=== PATIENT | female | born 1980 | race Caucasian/White ===

== ENCOUNTER → 2020-08-25 16:31 | Outpatient (BNVA) | payer OTHER, SELFPAY | PROVIDERS: PCP Nurse Practitioner Family; Visit Provider Family Medicine | DX: Z20.828 Contact with and (suspected) exposure to other viral communicable diseases (principal) | CPT/HCPCS: 87635 ==

== ENCOUNTER 2020-10-11 09:52 | Outpatient (CLI) | payer OTHER, SELFPAY ==
--- NOTE | 2020-10-11 10:13 | CT_ITS ---
WS: [id number] CT LUMBAR SPINE, noncontrast. HISTORY: COCCYX PAIN TECHNIQUE: Contiguous 2.5 mm axial imaging are performed. Sagittal and coronal reformats are submitte d and reviewed. All CT scans at [facility] use at least one of these dose optimization te chniques: automated exposure control; mA and/or kV adjustment per patient size (includes targeted exa ms where dose is matched to clinical indication); or iterative reconstruction. IV contrast: None DLP: 2725.74 mGycm COMPARISON: Radiograph 08/14/2020 Very mild straightening of the normal lumbar lordosis. Vertebral body heights and disc space heights are normally maintained. No fractures. Very minimal degenerative air in the SI joints. No sacral abno rmality. Only 3 segments of the sacrum are included. The coccyx was not included on this lumbar spine CT. L1-2: Normal. L2-3: Normal. L3-4: Normal. L4-5: Mild annular disc bulging. No significant stenosis. There is very slight widening of the facet joints. L5-S1: Mild facet joint arthritis. Very mild narrowing of the foramen due to osteophytes and facet ar thritis. IUD is noted within the endometrial canal. CT/CT lumbar spine wo con* [id number] IMPRESSION: 1. No lumbar spine or sacral fracture identified. Please note this lumbar spin e CT only included portion of the sacrum. The coccyx is not included. 2. Mild facet joint arthritis at L4-5 and L5-S1. No high-grade stenosis.
== END 2020-10-11 09:53 | disposition home or self-care (01) ==
LOC: RADWPI 09:55
PROVIDERS: PCP Nurse Practitioner Family; Visit Provider Nurse Practitioner Family
DX: M53.3 Sacrococcygeal disorders, not elsewhere classified (principal); M47.816 Spondylosis without myelopathy or radiculopathy, lumbar region; M47.817 Spondylosis without myelopathy or radiculopathy, lumbosacral region
CPT/HCPCS: 72131

== ENCOUNTER 2020-11-26 06:00 | Outpatient (RCR) | payer OTHER, SELFPAY | END 2020-12-06 23:00 | disposition home or self-care (01) | LOC: SPT 06:00 | PROVIDERS: PCP Nurse Practitioner Family; Referring Provider Nurse Practitioner Family; Visit Provider Nurse Practitioner Family | DX: M53.3 Sacrococcygeal disorders, not elsewhere classified (principal) | CPT/HCPCS: 97110; 97161 ==

== ENCOUNTER 2020-12-13 06:00 | Outpatient (RCR) | payer OTHER, SELFPAY | END 2020-12-14 23:59 | disposition home or self-care (01) | LOC: SPT 06:00 | PROVIDERS: PCP Nurse Practitioner Family; Referring Provider Nurse Practitioner Family; Visit Provider Nurse Practitioner Family | DX: N39.41 Urge incontinence (principal); M53.3 Sacrococcygeal disorders, not elsewhere classified | CPT/HCPCS: 97140; 97161; 97530 ==

== ENCOUNTER 2020-12-15 06:00 | Outpatient (RCR) | payer OTHER, SELFPAY | END 2021-01-14 23:59 | disposition home or self-care (01) | LOC: SPT 06:00 | PROVIDERS: PCP Nurse Practitioner Family; Referring Provider Nurse Practitioner Family; Visit Provider Nurse Practitioner Family | DX: N39.41 Urge incontinence (principal) | CPT/HCPCS: 97140 ==

== ENCOUNTER 2021-08-16 20:31 | Emergency (ER) | payer OTHER, SELFPAY ==
[2021-08-16 20:48] VITALS: BP 154/106; PULSE 91; RESP 18; TEMP 36.8; O2SAT 98; BMI 46.2
--- NOTE | 2021-08-16 21:19 | CTR_ITS ---
PROCEDURE INFORMATION: Exam: CT Abdomen And Pelvis Without Contrast Exam date and time: 08/16/2021 9:19 PM Age: 40 years old Clinical indication: Abdominal pain; Localized; Prior surgery; Surgery type: Iud; Patient HX: Having left flank/llq pain for one week. Has been on abx for UTI for several days. ; Additional info: Eval for kidney stone vs pyelo TECHNIQUE: Imaging protocol: Computed tomography of the abdomen and pelvis without contrast. Radiation optimization: All CT scans at this facility use at least one of these dose optimization techniques: automated exposure control; mA and/or kV adjustment per patient size (includes targeted exams where dose is matched to clinical indication); or iterative reconstruction. COMPARISON: CR XR sacrum coccyx min 2V [id number] 08/14/2020 10:11 AM RADIATION DOSE METRICS: Total DLP (mGy-cm): 1898.61 FINDINGS: Liver: Normal. No mass. Gallbladder and bile ducts: Normal. No calcified stones. No ductal dilation. Pancreas: Normal. No ductal dilation. Spleen: Normal. No splenomegaly. Adrenal glands: Normal. No mass. Kidneys and ureters: Normal. No hydronephrosis. Stomach and bowel: Unremarkable. No obstruction. No mucosal thickening. Appendix: No evidence of appendicitis. Intraperitoneal space: Unremarkable. No free air. No significant fluid collection. Vasculature: One or more calcified pelvic phleboliths. Lymph nodes: Unremarkable. No enlarged lymph nodes. Urinary bladder: Unremarkable as visualized. Reproductive: IUD within the uterus. Bones/joints: Unremarkable. No acute fracture. Soft tissues: Unremarkable. CT/CT kidney stone [id number] IMPRESSION: IUD within the uterus.
--- NOTE | 2021-08-16 21:23 | ED_ITS ---
HPI - General Adult General: Chief complaint: Abdominal Pain Stated complaint: Lower ABD Pain Lower Back Pain Time Seen by Provider: 08/16/21 21:10 History of Present Illness: HPI narrative: Patient is a 40-year-old female with history of recurrent UTI, renal colic who presents the emergency room with complaints of left lower quadrant pain and left flank pain x8 days. Patient initially has symptoms of pain and believed she torn a muscle after work-up. However last Thursday, patient noticed hematuria went to an urgent care clinic was diagnosed with UTI. Patient was started on Bactrim and has current is currently on day 4. Since starting Bactrim, patient continues to complaints of left-sided flank pain and now has had nausea and decreased p.o. intake. Denies any melena/hematochezia, ongoing hematuria, new vaginal discharge. Patient reports that this does not feel like kidney stone. Onset: 8 days ago Duration:8 days Location:home Severity:moderate Review of Systems Narrative: Constitutional: No fever, no chills. HEENT: No vision changes CV: No chest pain, no palpitations PULM: no cough, no dyspnea. GI: +L flank/LLQ abdominal pain, no N/V/D. : No dysuria MSKEL: No muscle pain SKIN: No new rashes, no lesions. NEURO: No headache, no focal weakness. HEME: No visible bruises PSYCH: Normal mood PFSH ED PFSH: Medical History (Updated 08/16/21 @ 21:23 by Raul Miranda MD) Anemia, unspecified Depression Genital herpes in women History of cervical dysplasia Menorrhagia with regular cycle No pertinent past medical history neghx: htn,dm,thyroid,dvt/pe PCP: Ashley Rodriguez Suicide attempt Surgical History H/O LEEP x2 Family History Grandfather Heart disease Maternal Hypertension Maternal Diabetes Maternal Mother Ovarian cancer dx age 22 Grandmother Diabetes Maternal Denies family history of Colon cancer Breast cancer Uterine cancer Thyroid disease Stroke Female Reproductive History: Date of last menstrual period: 05/31/21 Physical Exam Narrative: EXAM NARRATIVE: Head: Atraumatic Eyes: PERRL, conjunctiva without injection ENT: Mucous membrane moist NECK: Supple, ROM intact LUNGS: LCTAB, no crackles/rhonchi CV: RRR ABDOMEN: Soft, nontender in all quadrants EXTREMITY: Normal ROM SKIN: No rash or erythema NEURO: Awake and alert, no focal motor deficits PSYCH: Normal mood and affect Course Vital Signs: Vital signs: Vital Signs Temperature 98.3 F 08/16/21 20:48 Pulse Rate 91 08/16/21 20:48 Respiratory Rate 18 08/16/21 23:17 Blood Pressure 154/106 08/16/21 20:48 Pulse Oximetry 98 08/16/21 23:17 MDM - General Adult MDM Narrative: Medical decision making narrative: 40-year-old female presents emergency room with complaints of left-sided flank pain. On exam patient has mild tenderness palpation. CT negative for any findings of stones. No leukocytosis. No pelvic complaints this time and patient declined PAINTER SPRAY exam today. Do not suspect PAINTER SPRAY pathology. Received pain meds with improvement in symptoms. No suspicion for other acute intra-abdominal pathology including SBO, biliary pathology, appendicitis, diverticulitis, or other emergent condition requiring surgery. Disposition: Discharge. Patient counseled regarding diagnostic impression, treatment plan. Patient given ED strict return precautions to return for continuation, worsening, or development of new symptoms. Instructed to f/u w/ PCP regarding symptoms today. Patient verbalized understanding. Lab Data: Labs: Lab Results 08/16/21 08/16/21 08/16/21 21:42 21:42 21:42 WBC 10.2 10^3/uL H 10 ^3/uL (4.0-10.0) RBC 5.40 10^6/uL H 10 ^6/uL (4.1-5.3) Hgb 13.4 g/dL g/dL (11.5-15.3) Hct 44.5 % % (37.0-47.0) MCV 82.4 fl fl (81-99) MCH 24.8 pg L pg (28.0-34.0) MCHC 30.1 g/dL g/dL (30.0-36.0) RDW 14.3 % % (12.1-15.1) Plt Count 392 10^3/cmm 10^3 /cmm (130-400) MPV 9.8 fL fL (7.4-10.4) Neut % (Auto) 60.1 % % Lymph % (Auto) 27.5 % % [place] % (Auto) 8.0 % % Eos % (Auto) 3.7 % % Baso % (Auto) 0.5 % % Neut # (Auto) 6.12 10^3/uL 10^3 /uL (1.8-7.7) Lymph # (Auto) 2.8 10^3/uL 10^3/ uL (0.8-4.8) [place] # (Auto) 0.8 10^3/uL 10^3/ uL (0.2-0.9) Eos # (Auto) 0.4 10^3/uL 10^3/ uL (0.0-0.8) Baso # (Auto) 0.1 10^3/uL 10^3/ uL (0.0-0.1) Nucleated RBC % (a uto) 0 % % Nucleated RBCs # 0.0 /100WBC /100W BC Sodium 136 mmol/L mmol/L (136-145) Potassium 4.2 mmol/L mmol/L (3.5-5.1) Chloride 100 mmol/L mmol/L (98-107) Carbon Dioxide 24 mmol/L mmol/L (22-29) Anion Gap 16.2 (5-19) BUN 12 mg/dL mg/dL (6-20) Creatinine 0.8 mg/dL mg/dL (0.5-0.9) GFR Calculation 80.3 mL/min L mL/ min (90-130) Glucose 80 mg/dL mg/dL (65-115) Calculated Osmolal ity 281 mOsm/kg L mOs m/kg (285-295) Calcium 8.8 mg/dL mg/dL (8.5-10.5) Total Bilirubin 0.2 mg/dL mg/dL (0.15-1.2) AST 14 U/L U/L (0-32) ALT 16 U/L U/L (0-33) Alkaline Phosphata se 65 IU/L IU/L (35-105) Total Protein 7.2 g/dL g/dL (6.6-8.7) Albumin 4.3 g/dL g/dL (3.5-5.2) Globulin 2.9 g/dL g/dL (1.3-4.6) Lipase 22 U/L U/L (13-60) HCG, Qual Negative (Negative) Urine Color Urine Appearance Urine pH Ur Specific Gravit y Urine Protein Urine Glucose (UA) Urine Ketones Urine Blood Urine Nitrate Urine Bilirubin Urine Urobilinogen Ur Leukocyte Mariela ase Urine RBC Urine WBC Ur Squamous Epith Cells Amorphous Sediment Urine Bacteria 08/16/21 21:42 WBC RBC Hgb Hct MCV MCH MCHC RDW Plt Count MPV Neut % (Auto) Lymph % (Auto) [place] % (Auto) Eos % (Auto) Baso % (Auto) Neut # (Auto) Lymph # (Auto) [place] # (Auto) Eos # (Auto) Baso # (Auto) Nucleated RBC % (a uto) Nucleated RBCs # Sodium Potassium Chloride Carbon Dioxide Anion Gap BUN Creatinine GFR Calculation Glucose Calculated Osmolal ity Calcium Total Bilirubin AST ALT Alkaline Phosphata se Total Protein Albumin Globulin Lipase HCG, Qual Urine Color [place] (Yellow) Urine Appearance Clear (CLEAR) Urine pH 5 (5-7) Ur Specific Gravit y 1.015 (1.005-1.030) Urine Protein 1+ H (Negative) Urine Glucose (UA) Norm (Normal) Urine Ketones Negative (Negative) Urine Blood Neg (Negative) Urine Nitrate Positive H (Negative) Urine Bilirubin 1+ H (Negative) Urine Urobilinogen 4 mg/dL H mg/dL (Negative) Ur Leukocyte Mariela ase Negative (Negative) Urine RBC 0-4 /hpf H /hpf (0-2) Urine WBC 0-4 /hpf H /hpf (0-5) Ur Squamous Epith Cells 0-4 /hpf H /hpf (0-5) Amorphous Sediment Not Reportable Urine Bacteria 1+ /hpf H /hpf (NONE) Imaging Data^: Other Imaging: Radiologist's impression: [address] [id number] Scan ReportSigned Patient: Suzy Navarro #: [id number]: 1980Acct#:[id number]/Sex: 40 / FADM Date: 08/16/21Loc: ERRoom/Bed:Attending Dr: Ordering Provider/Ordering MD: Raul Miranda MD Date of Service: 08/16/21 Procedure(s): CT kidney stone [id number] Accession Number(s): [id number] Report Number: [id number] PROCEDURE INFORMATION: Exam: CT Abdomen And Pelvis Without Contrast Exam date and time: 08/16/2021 9:19 PM Age: 40 years old Clinical indication: Abdominal pain; Localized; Prior surgery; Surgery type: Iud; Patient HX: Having left flank/llq pain for one week. Has been on abx for UTI for several days. ; Additional info: Eval for kidney stone vs pyelo TECHNIQUE: Imaging protocol: Computed tomography of the abdomen and pelvis without contrast. Radiation optimization: All CT scans at this facility use at least one of these dose optimization techniques: automated exposure control; mA and/or kV adjustment per patient size (includes targeted exams where dose is matched to clinical indication); or iterative reconstruction. COMPARISON: CR XR sacrum coccyx min 2V [id number] 08/14/2020 10:11 AM RADIATION DOSE METRICS: Total DLP (mGy-cm): 1898.61 FINDINGS: Liver: Normal. No mass. Gallbladder and bile ducts: Normal. No calcified stones. No ductal dilation. Pancreas: Normal. No ductal dilation. Spleen: Normal. No splenomegaly. Adrenal glands: Normal. No mass. Kidneys and ureters: Normal. No hydronephrosis. Stomach and bowel: Unremarkable. No obstruction. No mucosal thickening. Appendix: No evidence of appendicitis. Intraperitoneal space: Unremarkable. No free air. No significant fluid collection. Vasculature: One or more calcified pelvic phleboliths. Lymph nodes: Unremarkable. No enlarged lymph nodes. Urinary bladder: Unremarkable as visualized. Reproductive: IUD within the uterus. Bones/joints: Unremarkable. No acute fracture. Soft tissues: Unremarkable. CT/CT kidney stone [id number] IMPRESSION: IUD within the uterus. Dictated By:Bennie Recinos MDSigned By:Bennie Recinos MDSigned Date/T ana:08/16/211DD/ 18 Discharge Plan Discharge Patient Disposition: Home Clinical Impression: Acute flank pain, Left lower quadrant abdominal pain Condition: Stable Prescriptions: New fosfomycin tromethamine 3 gram packet 1 packet PO ONCE Qty: 1 RF: 0 Celebrex 100 mg capsule 100 mg PO BID Qty: 20 RF: 0 No Action acyclovir 200 mg capsule 200 mg PO TID Qty: 60 RF: 6 naproxen 500 mg tablet 500 mg PO BID 15 Days Qty: 30 RF: 0 Discharge Orders: Discharge ED (Routine); Ordered 08/16/21 Ordered By: Wing Serrano Referrals: Rose Rodriguez FNP [Primary Care Provider] - Discharge Diet: Advance as tolerated Discharge Activity: Resume usual activity Patient Instructions: Urinary Tract Infection in Women (ED), Abdominal Pain (ED) Activity Restrictions/Additional Instructions: Come back to the emergency room or follow-up with your primary care provider if your pain worsens, if any fever chills, nausea/vomiting, decreased p.o. intake, or any new or concerning complaints. Coding Level of Care Code ED Dairy Nutritionist for [facility]
[2021-08-16] MEDS: sodium chloride 0.9% 1,000 ML 999 ML IV (22:02)
[2021-08-16 22:06] LABS: Basophils # 0.1 10^3/uL (0.0-0.1); Basophils % 0.5 %; Eosinophils # 0.4 10^3/uL (0.0-0.8); Eosinophils % 3.7 %; Hematocrit 44.5 % (37.0-47.0); Hemoglobin 13.4 g/dL (11.5-15.3); Lymphocytes # 2.8 10^3/uL (0.8-4.8); Lymphocytes % 27.5 %; Mean Corpuscular HGB Conc 30.1 g/dL (30.0-36.0); Mean Corpuscular Hemoglobin 24.8 pg (28.0-34.0); Mean Corpuscular Volume 82.4 fl (81-99); Mean Platelet Volume 9.8 fL (7.4-10.4); Monocytes # 0.8 10^3/uL (0.2-0.9); Neutrophils # 6.12 10^3/uL (1.8-7.7); Neutrophils % 60.1 %; Nucleated Red Blood Cells % 0 %; Platelet Count 392 10^3/cmm (130-400); Red Cell Distribution Width 14.3 % (12.1-15.1); White Blood Count 10.2 10^3/uL (4.0-10.0)
[2021-08-16] MEDS: acetaminophen 500 mg Tablet 1000 MG PO (22:11)
[2021-08-16] MEDS: ketorolac 30 mg/mL INJ IVP (22:11)
[2021-08-16 22:17] LABS: HCG, Serum Qual Negative (Negative)
[2021-08-16 22:19] LABS: Add Urine Culture? No; Add Urine Microscopic? YES; Bacteria Urine 1+ /hpf; Bilirubin Urine 1+ (Negative); Blood Urine Neg (Negative); Glucose Urine UA Norm (Normal); Ketones Urine Negative (Negative); Leukocyte Esterase Urine Negative (Negative); Nitrate Urine Positive (Negative); Protein Urine 1+ (Negative); RBC Urine 0-4 /hpf (0-2); Specific Gravity, Urine 1.015 (1.005-1.030); Squamous Epithelial Cell Urine 0-4 /hpf (0-5); Urine Appearance Clear (CLEAR); Urine Color Orange (Yellow); Urobilinogen Urine 4 mg/dL (Negative); WBC Urine 0-4 /hpf (0-5); pH Urine 5 (5-7)
[2021-08-16 22:31] LABS: Alanine Aminotransferase 16 U/L (0-33); Albumin Level 4.3 g/dL (3.5-5.2); Alkaline Phosphatase 65 IU/L (35-105); Anion Gap 16.2 (5-19); Aspartate Amino Transferase 14 U/L (0-32); Blood Urea Nitrogen 12 mg/dL (6-20); Calcium 8.8 mg/dL (8.5-10.5); Carbon Dioxide 24 mmol/L (22-29); Chloride 100 mmol/L (98-107); Globulin 2.9 g/dL (1.3-4.6); Glomerular Filtration Rate 80.3 mL/min (90-130); Glucose 80 mg/dL (65-115); Lipase 22 U/L (13-60); Osmolality Calculated 281 mOsm/kg (285-295); Potassium 4.2 mmol/L (3.5-5.1); Sodium 136 mmol/L (136-145); Total Bilirubin 0.2 mg/dL (0.15-1.2); Total Protein 7.2 g/dL (6.6-8.7)
[2021-08-16 23:17] VITALS: RESP 18; O2SAT 98
[2021-08-16] MEDS: morphine 4 mg/mL SDV 1 mL 2 MG IVP (23:17)
[2021-08-16] MEDS: cephALEXin 500 mg Capsule PO (23:51)
== END 2021-08-17 00:40 | disposition home or self-care (01) ==
PROVIDERS: Emergency Medicine; Emergency Provider Nurse Practitioner Family; PCP Nurse Practitioner Family
DX: R10.32 Left lower quadrant pain (principal)
CPT/HCPCS: 74176; 80053; 81001; 83690; 84703; 85025; 96361; 96374; 96375; 99284; J1885; J2270; J7030

== ENCOUNTER → 2021-12-12 12:07 | Outpatient (BNVA) | payer OTHER, SELFPAY | PROVIDERS: PCP Nurse Practitioner Family; Visit Provider Registered Nurse Neonatal Intensive Care | DX: N39.0 Urinary tract infection, site not specified (principal); R39.9 Unspecified symptoms and signs involving the genitourinary system | CPT/HCPCS: 81000; 87086 ==

== ENCOUNTER 2022-03-27 07:54 | Outpatient (CLI) | payer OTHER, SELFPAY ==
--- NOTE | 2022-03-27 08:00 | MM_ITS ---
WS: [id number] DIAGNOSTIC BILATERAL DIGITAL BREAST TOMOSYNTHESIS MAMMOGRAPHY WITH CAD LEFT breast ultrasound, limited. HISTORY: Left-sided breast pain. COMPARISON: None available. TECHNIQUE: Bilateral craniocaudad, mediolateral oblique, and mediolateral views are submitted with to mosynthesis and SM. Spot compression LEFT CC. Computer aided detection utilized. Breast composition: There are scattered areas of fibroglandular density. Marker is placed along the a nterior LEFT breast near 12:00. No underlying abnormality is identified on mammography. LEFT breast ultrasound, limited. Ultrasound is performed in the area of pain which includes from 3-6 o'clock and also near the nipple. There is no mass identified. No soft tissue thickening or distortion. No increased vascularity. MM/[place] [id number] IMPRESSION: BI-RADS: 2-Benign FOLLOW UP: 1 Year Follow-up
--- NOTE | 2022-03-27 08:08 | US_ITS ---
WS: [id number] DIAGNOSTIC BILATERAL DIGITAL BREAST TOMOSYNTHESIS MAMMOGRAPHY WITH CAD LEFT breast ultrasound, limited. HISTORY: Left-sided breast pain. COMPARISON: None available. TECHNIQUE: Bilateral craniocaudad, mediolateral oblique, and mediolateral views are submitted with to mosynthesis and SM. Spot compression LEFT CC. Computer aided detection utilized. Breast composition: There are scattered areas of fibroglandular density. Marker is placed along the a nterior LEFT breast near 12:00. No underlying abnormality is identified on mammography. LEFT breast ultrasound, limited. Ultrasound is performed in the area of pain which includes from 3-6 o'clock and also near the nipple. There is no mass identified. No soft tissue thickening or distortion. No increased vascularity. US/US breast LT limited* [id number] IMPRESSION: BI-RADS: 2-Benign FOLLOW UP: 1 Year Follow-up
== END 2022-03-27 07:55 | disposition home or self-care (01) ==
PROVIDERS: PCP Nurse Practitioner Family; Visit Provider Nurse Practitioner Family
DX: N64.4 Mastodynia (principal)
CPT/HCPCS: 76642; 77062

== ENCOUNTER 2023-04-14 08:51 | Outpatient (CLI) | payer OTHER, SELFPAY ==
--- NOTE | 2023-04-14 08:57 | MM_ITS ---
WS: [id number] VIEWS: MLO and CC views both breasts. 3D digital tomosynthesis is also included in this exam. Comparison made with prior exam of 03/27/2022. Findings: Questionable new 1 cm ovoid nodule noted in the anterior lateral RIGHT breast at about nipple level. This is best seen on the MLO view and the MLO tomograms. Difficult to identify on the cc views. No ar chitectural distortion or suspicious calcification. No new finding in the LEFT breast. There are area s of scattered fibroglandular density. Regional ultrasound as well as compression spot imaging of the RIGHT breast would be indicated for further work-up. Impression: MM/[place] [id number] BI-RADS: 0-Incomplete: Need additional imaging evaluation FOLLOW-UP: See Report This mammogram was also analyzed by the Computer Aided Detection System R2 Imag e Correctional Therapy Director.
== END 2023-04-14 08:52 | disposition home or self-care (01) ==
LOC: RAD 08:53 → MOBLMAM 08:56
PROVIDERS: PCP Nurse Practitioner Family; Visit Provider Nurse Practitioner Women's Health
DX: Z12.39 Encounter for other screening for malignant neoplasm of breast (principal)
CPT/HCPCS: 77063; 77067

== ENCOUNTER 2023-05-01 08:42 | Outpatient (CLI) | payer OTHER, SELFPAY ==
--- NOTE | 2023-05-01 09:00 | MM_ITS ---
WS: [id number] VIEWS: Compression spot images of the RIGHT breast in the craniocaudal, mediolateral and MLO projecti ons were obtained with tomography.. Comparison made with prior exam of screening exam of 04/14/2023 Findings: The previously suspicioned nodule in the anterior lateral RIGHT breast is not identified on the compr ession spot images or the tomograms. No suspicious finding. Areas of scattered fibroglandular density in the RIGHT breast. Impression: MM/[place] [id number] BI-RADS: 2-Benign FOLLOW-UP: 1 Year Follow-up This mammogram was also analyzed by the Computer Aided Detection System R2 Imag e Investigator Operator.
== END 2023-05-01 08:43 | disposition home or self-care (01) ==
PROVIDERS: PCP Nurse Practitioner Family; Visit Provider Nurse Practitioner Women's Health
DX: R92.8 Other abnormal and inconclusive findings on diagnostic imaging of breast (principal)
CPT/HCPCS: 77061; G0279

== ENCOUNTER 2023-07-05 14:30 | Emergency (ER) | payer OTHER, SELFPAY ==
[2023-07-05 14:35] VITALS: BP 131/84; PULSE 84; RESP 14; TEMP 36.4; O2SAT 98; BMI 34.6
[2023-07-05] MEDS: ondansetron 2 mg/ML SDV 2 mL 4 MG IVP (14:48)
--- NOTE | 2023-07-05 14:49 | W.ED.WOUNDLC ---
HPI - Wound/Laceration General: Chief Complaint: Wound/Laceration Stated Complaint: cut fingers with saw Time Seen by Provider: 07/05/23 14:34 Source: patient Mode of arrival: ambulatory History of Present Illness: 42-year-old female presents to the emergency room with complaints injury to the second third and fourth fingertips of the left hand. She was using a miter saw when a board flipped out and her hand got pulled into the blade no active bleeding. No active bleeding. Onset (ago): minute(s) Extremity Location: Left: hand (Second third fourth fingers) Place: home Context: accidental Associated symptoms: Denies inability to move PFS ED PFSH: Medical History Anemia, unspecified Depression Genital herpes in women History of cervical dysplasia Menorrhagia with regular cycle No pertinent past medical history neghx: htn,dm,thyroid,dvt/pe PCP: Ashley Rodriguez Suicide attempt Surgical History H/O LEEP x2 Family History Grandfather Heart disease Maternal Hypertension Maternal Diabetes Maternal Mother Ovarian cancer dx age 22 Grandmother Diabetes Maternal Denies family history of Colon cancer Breast cancer Uterine cancer Thyroid disease Stroke Social History Substance/Drug Use: never Physical Exam Const: GENERAL APPEARANCE: cooperative and comfortable ORIENTATION/CONSCIOUSNESS: Yes awake, Yes oriented to person, Yes oriented to place and Yes oriented to time HENMT: COMMON NORMALS: normocephalic, atraumatic and hearing grossly normal bilaterally HEAD & SCALP: normocephalic and atraumatic Extremity: OTHER: Complete avulsion with no remaining viable tissue the open wounds on the third and fourth fingers on the second finger left hand there is abraded devascularized tissue in place no active bleeding in any of the wounds. Neuro: SENSORIUM/ORIENTATION: Yes oriented to person, Yes oriented to place and Yes oriented to time Course Vital Signs: Vital signs: Vital Signs Temperature 97.5 F L 07/05/23 14:35 Pulse Rate 84 07/05/23 14:35 Respiratory Rate 17 07/05/23 14:50 Blood Pressure 131/84 07/05/23 14:35 Pulse Oximetry 98 07/05/23 14:35 Oxygen Delivery Me thod Room Air 07/05/23 14:35 MDM - Wound/Laceration Medical Decision Making No viable tissue to suture. Discharge home and recommend follow-up with primary care. Topical antibiotic ointment to the wounds twice daily. Medical Records I reviewed the patient's medical records. Lab Data I reviewed the patient's lab results. No radiology studies performed this visit Discharge Plan Discharge Patient Disposition: Home Clinical Impression: Avulsion of skin of finger Condition: Stable Prescriptions: New mupirocin 2 % ointment 1 applic topical BID Qty: 22 0RF No Action Mounjaro 2.5 mg/0.5 mL pen injector SUBCUT acyclovir 200 mg capsule 400 mg PO BID PRN (Reason: Herpes) Qty: 120 11RF acyclovir 5 % ointment 1 applic topical 6XD PRN (Reason: herpes) Qty: 5 1RF naproxen 500 mg tablet 500 mg PO BID 15 Days Qty: 30 0RF Rx Instructions: start in 24 hours if symptoms persist Discharge Orders: Discharge ED (Routine); Ordered 07/05/23 Ordered By: Calvin Vieyra Referrals: Rose Rodriguez FNP [Primary Care Provider] - Discharge Diet: Usual diet Discharge Activity: Increase activity as tolerated Patient Instructions: Opioid Safety, Pain Management Activity Restrictions/Additional Instructions: Thank you for choosing [facility] for your healthcare needs today. Please realize this is an emergency room and that we are providing you with a medical screening exam and this may not be complete and all inclusive of all the testing and or work up that you may need to determine your ailment or severity of your illness. It is very important that you follow up as instructed or that you return to the Emergency Department should you have concerns or if your condition changes or worsens in any way. You were seen today in the emergency room after an injury with a fall. The to the fingertips did not have any viable tissue to suture closed the wounds left to heal by secondary intent and scar then. Apply topical antibiotic ointment twice daily until healed follow-up with your primary care doctor concerning signs of infection return. Coding Level of Care Code ED Elementary School Director for [facility]
[2023-07-05 14:50] VITALS: RESP 17
[2023-07-05] MEDS: morphine 4 mg/mL SDV 1 mL IVP (14:50)
[2023-07-05] MEDS: tetanus-dipt-pertussis 0.5 mL SDV IM (14:55)
[2023-07-05 15:16] VITALS: BP 109/71; PULSE 73; O2SAT 100
== END 2023-07-05 15:25 | disposition home or self-care (01) ==
PROVIDERS: Emergency Provider Family Medicine; PCP Nurse Practitioner Family
DX: S61.203A Unspecified open wound of left middle finger without damage to nail, initial encounter (principal); S61.205A Unspecified open wound of left ring finger without damage to nail, initial encounter; W27.0XXA Contact with workbench tool, initial encounter; Z23 Encounter for immunization
CPT/HCPCS: 90471; 90715; 96374; 96375; 99284; J2270; J2405

== ENCOUNTER → 2024-10-07 15:18 | Outpatient (BNVA) | payer OTHER, MEDICAID, SELFPAY | PROVIDERS: PCP Nurse Practitioner Family; Visit Provider Nurse Practitioner Women's Health | DX: Z00.00 Encounter for general adult medical examination without abnormal findings (principal) | CPT/HCPCS: 87624 ==

== ENCOUNTER 2025-08-04 08:10 | Outpatient (CLI) | payer OTHER, MEDICAID, SELFPAY ==
--- NOTE | 2025-08-04 08:21 | MM_ITS ---
WS: [id number] BILATERAL 3D TOMOSYNTHESIS DIGITAL SCREENING MAMMOGRAPHY WITH CAD CLINICAL INFORMATION: ANNUAL SCREENING HISTORY: Screening mammogram. No current complaints. COMPARISON: 2022 TECHNIQUE: Bilateral CC and MLO views. FINDINGS: Scattered fibroglandular densities bilaterally. No suspicious focal mass, asymmetry, calcifications, or architectural distortion. No evidence of malignancy. MM/MM scr BI tomosynthesis [id number] IMPRESSION: DENSITY: There are scattered areas of fibroglandular density. BI-RADS: 1 - Negative. FOLLOW UP: 1 Year Follow-up Recommend return to annual screening mammography.
== END 2025-08-04 08:11 | disposition home or self-care (01) ==
LOC: RAD 08:17
PROVIDERS: PCP Nurse Practitioner Family; Visit Provider Nurse Practitioner Family
DX: Z12.31 Encounter for screening mammogram for malignant neoplasm of breast (principal); R92.323 Mammographic fibroglandular density, bilateral breasts
CPT/HCPCS: 77063; 77067